=== PATIENT | male | born 1950 | race Caucasian/White ===

== ENCOUNTER 2019-01-15 20:46 | Emergency (ER) | payer OTHER ==
[2019-01-15 21:33] VITALS: BP 112/75
[2019-01-15] MEDS ORDERED: Acetaminophen TAB* 325 MG PO ONE (21:44)
[2019-01-15] MEDS ORDERED: NS 0.9% 1000 ML** 1,000 ML IV ONE (22:08)
--- NOTE | 2019-01-15 22:15 | UC ---
FLU HPI - HPI Summary HPI Summary: 69 year old male with PMH + for prostatitis in 2014 presents with fever, rash , general malaise. Patient states tactile fever, fatigue/ malaise started Saturday while traveling from [place]. fever was noted to be 101, he took ASA and symptoms improved. Returned again on with temp 101.5. Noted to have gagging intermittently, with either food or liquid. He was seen at his primary care office yesterday, where he was diagnosed with acute prostatitis and started on Bactrim. No rectal exam performed. After 1 dose his noted a rash on his legs and it was stopped after consulting PCP. patient denies SOB, chest pain, joint pains, headache. Decreased appetite, no N /V/ ABdominal pains. Denies pains with urination, states urine feels warm. Frequent urination at night. intermittent cough since saturday, non-productive. - History of Current Complaint Chief Complaint: UCGeneralIllness Stated Complaint: POSS ALLERGY TO SULFA Time Seen by Provider: 01/15/19 21:43 Hx Obtained From: Patient, Family/[employer] - Onset/Duration: Sudden Onset, Lasting Days - 3-4 days, Still Present Severity Currently: Moderate Severity Initially: Moderate Pain Intensity: 5 Pain Scale Used: 0-10 Numeric Associated Signs & Symptoms: Positive: Fever, T Max - 102.8, Cough. Negative: Sore Throat, Nasal Congestion, Headache, Vomiting, Diarrhea - Allergy/Home Medications Allergies/Adverse Reactions: Allergies Allergy/AdvReac Type Severity Reaction Status Date / Time No Known Allergies Allergy Verified 01/15/19 23:07 Home Medications: Home Medications Aspirin TAB* [Aspirin 325 MG TAB*] 325 mg PO QID PRN 01/15/19 [History Confirmed 01/15/19] Sulfamethox/Trimethoprim SS* [Bactrim SS 400/80 TAB*] 1 tab PO BID 01/15/19 [ History Confirmed 01/15/19] PMH/Surg Hx/FS Hx/Imm Hx Previously Healthy: Yes - Surgical History Surgical History: Yes Surgery Procedure, Year, and Place: hiatal hernia repair as child. inguinal hernia repair as adult - Family History Known Family History: Positive: Non-Contributory - Social History Alcohol Use: Daily Substance Use Type: None Smoking Status (MU): Never Smoked Tobacco Review of Systems All Other Systems Reviewed And Are Negative: Yes Constitutional: Positive: Fever, Chills, Fatigue Genitourinary: Negative: Dysuria, Hematuria, Frequency, Urgency Musculoskeletal: Positive: Myalgia. Negative: Arthralgia, Calf Tenderness, Decreased ROM, Edema Neurological: Negative: Headache Psychological: Negative: Anxious Is Patient Immunocompromised?: No Physical Exam Triage Information Reviewed: Yes Appearance: No Pain Distress, Well-Nourished, Ill-Appearing Vital Signs: Initial Vital Signs Temp 102.9 F 01/15/19 21:22 Pulse 117 01/15/19 21:22 Resp 16 01/15/19 21:22 BP 112/75 01/15/19 21:22 Pulse Ox 100 01/15/19 21:22 Vital Signs Reviewed: Yes Eyes: Positive: Conjunctiva Clear ENT: Positive: Hearing grossly normal, Pharynx normal, Other - unable to see TM due to cerumen impaction. Negative: Pharyngeal erythema, Tonsillar swelling, Tonsillar exudate, Sinus tenderness Neck: Positive: Supple, Nontender, No Lymphadenopathy. Negative: Nuchal Rigidity, Enlarged Nodes @ Respiratory: Positive: Chest non-tender, Lungs clear, Normal breath sounds, No respiratory distress, No accessory muscle use. Negative: Crackles, Rhonchi, Stridor, Wheezing Cardiovascular: Positive: RRR, No Murmur Abdomen Description: Positive: Nontender, No Organomegaly, Soft, Other: - no suprapubic tenderness. Negative: CVA Tenderness (R), CVA Tenderness (L), Distended, Guarding Musculoskeletal Exam: Normal - normal gait, no joint pains UE, LEs Neurological Exam: Normal Neurological: Positive: Alert Psychological Exam: Normal Skin: Positive: Other - non-blanching petechial rash over b/l LEs to mid-calf. no joint pain, swelling. neg homans. Flu Course/Dx - Course Course Of Treatment: Due to possible sepsis with petechial rash, patient sent to ER via ambo with IV , fluids, tylenol. - Differential Dx/Diagnosis Differential Diagnosis/HQI/PQRI: Influenza, RSV, Upper Respiratory Infection Provider Diagnosis: Sepsis Discharge - Sign-Out/Discharge Documenting (check all that apply): Patient Departure All imaging exams completed and their final reports reviewed: No Studies - Discharge Plan Condition: Fair Disposition: TRANS [facility]ARE [facility] Referrals: Oskar Bills MD [Primary Care Provider] - - Billing Disposition and Condition Condition: FAIR Disposition: Trans Higher Lvl of Care Fac - Attestation Statements Provider Attestation: This patient was not seen by me. I was available for consult. MARY
[2019-01-15 22:28] LABS: Influenza A Molecular NEGATIVE (Negative); Influenza B Molecular NEGATIVE (Negative)
== END 2019-01-15 23:15 | disposition short-term general hospital (02) ==
LOC: UCEAST 20:46
DX: A41.9 Sepsis, unspecified organism (principal); Z79.82 Long term (current) use of aspirin
CPT/HCPCS: 99213; A9270-GY; G0463

== ENCOUNTER 2019-01-15 22:48 | Emergency (ER) | payer OTHER ==
[2019-01-15] MEDS ORDERED: NS 0.9% 1000 ML** 1,000 ML IV ONE (23:10)
[2019-01-15 23:59] LABS: Activated Partial Thrombo Time 32.2 seconds (26.0-38.0); INR 1.39 (0.82-1.09)
[2019-01-16 00:01] LABS: Hematocrit 32 % (42-52); Hemoglobin 11.1 g/dL (14.0-18.0); Mean Corpuscular HGB Conc 35 g/dL (31-36); Mean Corpuscular Hemoglobin 32 pg (27-31); Mean Corpuscular Volume 93 fL (80-94); Mean Platelet Volume 8.9 fL (7.4-10.4); Platelet Count 49 10^3/uL (150-450); Red Blood Count 3.43 10^6 /uL (4.18-5.48); Red Cell Distribution Width 13 % (10-15); White Blood Count 5.2 10^3/uL (3.5-10.8)
[2019-01-16 00:08] LABS: Albumin 3.3 g/dL (3.2-5.2); Albumin/Globulin Ratio 1.3 (1-3); BUN/Creatinine Ratio 30.9 (8-20); C Reactive Protein 169.09 mg/L (<8.01); Calcium 8.4 mg/dL (8.6-10.3); EGFR African American 114.7 (>60); EGFR Non-African American 94.8 (>60); Globulin 2.6 g/dL (2-4); Potassium 3.8 mmol/L (3.5-5.0); Total Protein 5.9 g/dL (6.4-8.9)
--- NOTE | 2019-01-16 00:17 | ED ---
HPI Febrile Illness - HPI Summary HPI Summary: 69 year old male presents with fever for past three days. He states yesterday he was seen at his primary for urgency and frequency and dx with prostatis and started on Bactrim. He states that since yesterday he developed petechia rash. He states the rash is nontender. Has never had this rash before. No new soaps or products. Denies any muscle aches. Does admit to occasional headache. He has had a cough for the past week. No chest or shortness breath. No vomiting. No dysuria. no neck stiffness. Did travel back from [place] recently. spent a lot of time outdoors. May have been exposed to ticks. - History of Current Complaint Chief Complaint: EDFever Time Seen by Provider: 01/15/19 23:08 Pain Intensity: 0 - Allergy/Home Medications Allergies/Adverse Reactions: Allergies Allergy/AdvReac Type Severity Reaction Status Date / Time No Known Allergies Allergy Verified 01/15/19 23:07 PMH/Surg Hx/FS Hx/Imm Hx Endocrine/Hematology History: Denies: Hx Diabetes, Hx Thyroid Disease Cardiovascular History: Denies: Hx Hypertension Respiratory History: Denies: Hx Asthma, Hx Chronic Obstructive Pulmonary Disease (COPD) GI History: Denies: Hx Ulcer - Surgical History Surgery Procedure, Year, and Place: hiatal hernia repair as child. inguinal hernia repair as adult Infectious Disease History: No Infectious Disease History: Denies: Hx Hepatitis, Hx Human Immunodeficiency Virus (HIV), Traveled Outside the in Last 30 Days - Family History Known Family History: Positive: Non-Contributory - Social History Alcohol Use: Daily Substance Use Type: Reports: None Smoking Status (MU): Never Smoked Tobacco Review of Systems Positive: Fever Negative: Chest Pain Negative: Shortness Of Breath Positive: frequency, urgency Positive: Rash All Other Systems Reviewed And Are Negative: Yes Physical Exam Triage Information Reviewed: Yes Vital Signs On Initial Exam: Initial Vitals Temp Pulse Resp BP Pulse Ox 98.4 F 99 18 124/70 96 01/15/19 22:55 01/15/19 22:55 01/15/19 22:55 01/15/19 22:55 01/15/19 22:55 Vital Signs Reviewed: Yes Appearance: Positive: Well-Appearing Skin: Positive: Other - petechiae rash on lower legs Head/Face: Positive: Normal Head/Face Inspection Eyes: Positive: Normal, EOMI, BRENDA, Conjunctiva Clear ENT: Positive: Normal ENT inspection, Pharynx normal, TMs normal Respiratory/Lung Sounds: Positive: Clear to Auscultation, Breath Sounds Present Cardiovascular: Positive: Normal, RRR Abdomen Description: Positive: Nontender, Soft Bowel Sounds: Positive: Present Musculoskeletal: Positive: Normal Neurological: Positive: Normal Psychiatric: Positive: Normal Diagnostics - Vital Signs Vital Signs Temp Pulse Resp BP Pulse Ox 01/15/19 22:55 98.4 F 99 18 124/70 96 - Laboratory Lab Results: Lab Results 01/15/19 01/15/19 01/15/19 Range/Units 23:38 23:38 23:38 WBC 5.2 (3.5-10.8) 10^3/uL RBC 3.43 L (4.18-5.48) 10^6 /uL Hgb 11.1 L (14.0-18.0) g/dL Hct 32 L (42-52) % MCV 93 (80-94) fL MCH 32 H (27-31) pg MCHC 35 (31-36) g/dL RDW 13 (10-15) % Plt Count 49 L (150-450) 10^3/uL MPV 8.9 (7.4-10.4) fL Neut % (Auto) Not Reportable Lymph % (Auto) Not Reportable [place] % (Auto) Not Reportable Eos % (Auto) Not Reportable Baso % (Auto) Not Reportable Absolute Neuts (auto) Not Reportable Absolute Lymphs (auto) Not Reportable Absolute Monos (auto) Not Reportable Absolute Eos (auto) Not Reportable Absolute Basos (auto) Not Reportable Absolute Nucleated RBC Not Reportable Neutrophils % Pending Nucleated RBC % Not Reportable Normal RBC Morphology Pending INR (Anticoag Therapy) 1.39 H (0.82-1.09) APTT 32.2 (26.0-38.0) seconds Sodium 133 L (135-145) mmol/L Potassium 3.8 (3.5-5.0) mmol/L Chloride 104 (101-111) mmol/L Carbon Dioxide 20 L (22-32) mmol/L Anion Gap 9 (2-11) mmol/L BUN 25 H (6-24) mg/dL Creatinine 0.81 (0.67-1.17) mg/dL Est GFR ( Amer) 114.7 (>60) Est GFR (Non-Af Amer) 94.8 (>60) BUN/Creatinine Ratio 30.9 H (8-20) Glucose 143 H (70-100) mg/dL Lactic Acid (0.5-2.0) mmol/L Calcium 8.4 L (8.6-10.3) mg/dL Total Bilirubin 1.00 (0.2-1.0) mg/dL AST 38 (13-39) U/L ALT 38 (7-52) U/L Alkaline Phosphatase 67 (34-104) U/L C-Reactive Protein 169.09 H (<8.01) mg/L Total Protein 5.9 L (6.4-8.9) g/dL Albumin 3.3 (3.2-5.2) g/dL Globulin 2.6 (2-4) g/dL Albumin/Globulin Ratio 1.3 (1-3) /01/26 Range/Units 23:39 WBC (3.5-10.8) 10^3/uL RBC (4.18-5.48) 10^6 /uL Hgb (14.0-18.0) g/dL Hct (42-52) % MCV (80-94) fL MCH (27-31) pg MCHC (31-36) g/dL RDW (10-15) % Plt Count (150-450) 10^3/uL MPV (7.4-10.4) fL Neut % (Auto) Lymph % (Auto) [place] % (Auto) Eos % (Auto) Baso % (Auto) Absolute Neuts (auto) Absolute Lymphs (auto) Absolute Monos (auto) Absolute Eos (auto) Absolute Basos (auto) Absolute Nucleated RBC Neutrophils % Nucleated RBC % Normal RBC Morphology INR (Anticoag Therapy) (0.82-1.09) APTT (26.0-38.0) seconds Sodium (135-145) mmol/L Potassium (3.5-5.0) mmol/L Chloride (101-111) mmol/L Carbon Dioxide (22-32) mmol/L Anion Gap (2-11) mmol/L BUN (6-24) mg/dL Creatinine (0.67-1.17) mg/dL Est GFR ( Amer) (>60) Est GFR (Non-Af Amer) (>60) BUN/Creatinine Ratio (8-20) Glucose (70-100) mg/dL Lactic Acid 0.7 (0.5-2.0) mmol/L Calcium (8.6-10.3) mg/dL Total Bilirubin (0.2-1.0) mg/dL AST (13-39) U/L ALT (7-52) U/L Alkaline Phosphatase (34-104) U/L C-Reactive Protein (<8.01) mg/L Total Protein (6.4-8.9) g/dL Albumin (3.2-5.2) g/dL Globulin (2-4) g/dL Albumin/Globulin Ratio (1-3) Result Diagrams: 01/15/19 23:38 01/15/19 23:38 Lab Statement: Any lab studies that have been ordered have been reviewed, and results considered in the medical decision making process. Course/Dx - Course Course Of Treatment: 69 year old male presents with fever for past three days. He states yesterday he was seen at his primary for urgency and frequency and dx with prostatis and started on Bactrim. He states that since yesterday he developed petechia rash. He states the rash is nontender. Has never had this rash before. No new soaps or products. Denies any muscle aches. Does admit to occasional headache. He has had a cough for the past week. No chest or shortness breath. No vomiting. No dysuria. no neck stiffness. Did travel back from [place] recently. spent a lot of time outdoors. May have been exposed to ticks. On exam has a petechial rash of the lower extremity. Otherwise normal physical exam. wbc normal. H&H is low. Platelets are low. CRP is elevated. LFTs are normal. With potential tick exposure in [place] and petechial rash and thrombocytopenia will treat for potential [place] spotted fever with doxycycline. Sent off a tick panel and Lyme disease in the meantime. Told to follow-up with primary to ensure that the thrombocytopenia resolves. Patient understands and agrees with plan. - Diagnoses Provider Diagnoses: Fever, Rash Discharge - Sign-Out/Discharge Documenting (check all that apply): Patient Departure Patient Received Moderate/Deep Sedation with Procedure: No - Discharge Plan Condition: Good Disposition: HOME Prescriptions: DOXYcycline CAP(*) [DOXYcycline 100MG CAP(*)] 100 mg PO BID #13 cap Patient Education Materials: [place] Spotted Fever (ED) Referrals: Oskar Bills MD [Primary Care Provider] - Additional Instructions: will treat presumptively as RMSF take doxycycline twice a day for 7 days take Tylenol every 6 hours for fever Follow up with primary within 7 days Return to ED if develop any new or worsening symptoms - Billing Disposition and Condition Condition: GOOD Disposition: Home
[2019-01-16 00:42] LABS: Urine Appearance Cloudy; Urine Bacteria Absent (Absent); Urine Bilirubin Negative (Negative); Urine Blood Negative (Negative); Urine Color Amber; Urine Glucose Negative (Negative); Urine Ketones 1+ (Negative); Urine Nitrite Negative (Negative); Urine Protein 1+(30 mg/dL) (Negative); Urine Red Blood Cell Absent (Absent); Urine Specific Gravity 1.031 (1.010-1.030); Urine Urobilinogen Negative (Negative); Urine White Blood Cell Trace(0-5/hpf) (Absent)
[2019-01-16 00:58] LABS: ABS Lymphocytes 0.7 10^3/ul (1.0-4.8); ABS Monocytes 1.1 10^3/ul (0-0.8); ABS Neutrophils 3.5 10^3/ul (1.5-7.7); Lymphocyte % 13.2 %; Nucleated Red Blood Cells % 0.3
[2019-01-16] MEDS ORDERED: DOXYcycline CAP(*) 100 MG PO ONE (01:22)
[2019-01-16 01:39] VITALS: BP 124/79
--- NOTE | 2019-01-16 13:04 | PN ---
Progress Note - Progress Note Date of Service: 01/15/19 Note: Final read per radiology: IMPRESSION: #. Stigmata of prior pulmonary granulomatous disease. #. No evidence for acute intrathoracic disease. Preliminary Imaging Read R2 No change in treatment needed.
[2019-01-18 22:52] LABS: Anaplasma phagocytophilum Negative (Negative); B. miyamotoi PCR, B Negative (Negative); Babesia divergens/MO-1 Negative (Negative); Babesia ducani Negative (Negative); Ehrlichia chaffeensis Negative (Negative); Ehrlichia ewingii/canis Negative (Negative); Ehrlichia muris eauclairensis Negative (Negative)
--- NOTE | 2019-01-19 09:22 | PN ---
Progress Note - Progress Note Date of Service: 01/15/19 Note: Discussed with patient at 9:15 AM Tick born illness of [place] Patient is started on azithromycin 500 mg today and 250 mg 6 days as well as atovaquone 750 mg twice a day 7 days Patient will continue to follow up with Dr. Bills and she is given f/u information for Dr. Ríos to assure an appt within the next week He will dc doxycycline
--- NOTE | 2019-01-19 10:36 | PN ---
Progress Note - Progress Note Date of Service: 01/15/19 Note: Pharmacy called at 10:15 AM Pharmacy requires preauthorization for the Atovaquone Discussed with pharmacist we will now prescribed clindamycin as well as quinine Quinine not available until tomorrow morning
== END 2019-01-16 01:38 | disposition home or self-care (01) ==
LOC: ED 22:48
DX: R50.9 Fever, unspecified (principal); R21 Rash and other nonspecific skin eruption
CPT/HCPCS: 36415; 71046; 80053; 81003; 81015; 83605; 85025; 85060; 85610; 85730; 86140; 86618; 87040; 87086; 87798; 96360; 96361; 99283; A9270-GY

== ENCOUNTER 2019-11-18 08:37 | Observation (INO) ==
[~2019-11-18 08:37] MED LIST: Famotidine IV 10 MG/ML 2 ml VIAL (20 mg) IV ONE; Lactated Ringers 1000 ml BAG 1,000 ML IV SCH
[2019-11-18] MEDS ORDERED: cefTRIAXone(*) 2 GM ADDV.VIAL ONE (08:54)
[2019-11-18] MEDS ORDERED: Famotidine IV 10 MG/ML 2 ml VIAL (20 mg) ONE (08:54)
[2019-11-18] MEDS ORDERED: DiMENhydriNATE IV 50 mg/ml 1 ml VIAL IV PUSH PRN (09:59)
[2019-11-18] MEDS ORDERED: Naloxone 0.4 mg VIAL 0.4 mg/ml 1 ml VIAL IV PRN (09:59)
[2019-11-18] MEDS ORDERED: HYDROmorphone 1 MG/1 ML SYRINGE IV PRN (09:59)
[2019-11-18] MEDS ORDERED: Midazolam 5 mg/5 ml VIAL 1 mg/ml 5 ml VIAL (5 mg) ONE (10:25)
[2019-11-18] MEDS ORDERED: Ondansetron 4 mg VIAL 2 MG/ML 2 ml VIAL ONE (10:53)
[2019-11-18] MEDS ORDERED: Propofol 10 MG/ML 20 ML BTL ONE (10:53)
[2019-11-18] MEDS ORDERED: Lidocaine 2% PF 5 ML VIAL ONE (10:54)
[2019-11-18] MEDS ORDERED: EPHEDrine (Pressors) 50 MG/ML VIAL ONE (11:45)
[2019-11-18] MEDS: NS 0.9% 1000 ml BAG 1,000 ML IV SCH ×2 (13:00→19:36)
[2019-11-18] MEDS ORDERED: oxyCODONE/Acetamin 5/325 mg TAB PO PRN (13:21)
[2019-11-19] MEDS: NS 0.9% 1000 ml BAG 1,000 ML IV SCH (02:11)
[2019-11-19] MEDS ORDERED: cefTRIAXone 1 gm/50 mL NS BAG 1 GM/50 ML BAG IVPB ONE (07:00)
[2019-11-19 07:57] VITALS: BP 137/64
[2019-11-19] MEDS ORDERED: Multivitamins/Minerals TAB PO SCH (09:00)
== END 2019-11-19 11:10 | disposition home or self-care (01) ==
LOC: OR 08:37 → INTOOBSV 13:08 → SSU 13:08
PROVIDERS: ADMIT Urology; ATTEND Urology